=== PATIENT | male | born 1970 | race Caucasian/White ===

== ENCOUNTER → 2018-08-07 | Outpatient (CLI) | payer OTHER | LOC: BMCIMAGING 08:11 | PROVIDERS: ATTEND Physician Assistant | DX: M25.531 Pain in right wrist (principal) ==

== ENCOUNTER → 2019-01-31 | Outpatient (CLI) | payer BC | LOC: BMCIMAGING 10:43 | PROVIDERS: ATTEND Emergency Medicine | DX: J18.0 Bronchopneumonia, unspecified organism (principal) ==

== ENCOUNTER → 2019-03-08 | Outpatient (CLI) | payer BC | LOC: BMCIMAGING 12:58 ==